=== PATIENT | female | born 1985 | race Caucasian/White ===

== ENCOUNTER 2018-09-21 09:57 | Inpatient (IN) | payer MEDICAID ==
[~2018-09-21 09:57] MED LIST: OXYTOCIN 30 UNITS/LR 500 ML BAG IV
[2018-09-21] MEDS ORDERED: METHYLERGONOVINE 0.2 MG INJ IM ×2 (10:30→18:00)
[2018-09-21] MEDS ORDERED: CARBOPROST 250 MCG INJ IM ×2 (10:30→18:00)
[2018-09-21] MEDS ORDERED: OXYTOCIN 30 UNITS/LR 500 ML IV ×2 (10:30→18:00)
[2018-09-21] MEDS ORDERED: MISOPROSTOL 200 MCG TAB PR ×2 (10:30→18:00)
[2018-09-21 10:42] LABS: ADD MAN DIFF? NO
[2018-09-21 10:51] LABS: BASOPHILS % 0.5 % (0.0-2.0); EOSINOPHILS # 0.1 10^3/ul (0.0-0.5); EOSINOPHILS % 0.8 % (0.0-7.0); HEMATOCRIT 39.4 % (37.0-47.0); HEMOGLOBIN 12.7 g/dl (12.0-16.0); LYMPHOCYTES # 1.9 10^3/ul (0.8-2.9); LYMPHOCYTES % 25.9 % (15.0-51.0); MEAN CORPUSCULAR HEMOGLOBIN 28.3 pg (29.0-33.0); MEAN CORPUSCULAR HGB CONC 32.2 g/dl (32.0-37.0); MEAN CORPUSCULAR VOLUME 87.8 fl (82.0-101.0); MEAN PLATELET VOLUME 11.1 fl (7.4-10.4); MONOCYTE # 0.6 10^3/ul (0.3-0.9); MONOCYTES % 7.3 % (0.0-11.0); NEUTROPHIL # 4.8 10^3/ul (1.6-7.5); NEUTROPHILS % 64.6 % (39.0-77.0); PLATELET COUNT 258 10^3/UL (140-415); RED BLOOD COUNT 4.49 10^6/ul (4.20-5.40); RED CELL DISTRIBUTION WIDTH 15.2 % (11.5-14.5)
[2018-09-21 10:51] LABS: WHITE BLOOD COUNT 7.5 10^3/ul (4.8-10.8)
[2018-09-21 11:01] LABS: GLUCOSE 80 mg/dl (70-220)
[2018-09-21] MEDS: LACTATED RINGER'S 1,000 ML IV ×2 (11:11→12:50)
[2018-09-21 11:33] LABS: HEPATITIS B SURFACE ANTIGEN NEGATIVE (NEGATIVE)
[2018-09-21 11:48] LABS: INR 0.88; PT RATIO 0.9
[2018-09-21 11:49] LABS: PARTIAL THROMBOPLASTIN TIME 27.2 Sec (23.0-35.0)
[2018-09-21] MEDS ORDERED: morphine SULFATE/PF (10 MG/10 ML) INJ (13:19)
[2018-09-21] MEDS ORDERED: ONDANSETRON 4 MG INJ (13:20)
[2018-09-21] MEDS ORDERED: DEXAMETHASONE 4 MG/ML 1 ML INJ (13:20)
[2018-09-21] MEDS ORDERED: FAMOTIDINE 20 MG INJ (13:20)
[2018-09-21] MEDS ORDERED: NALOXONE (0.4 MG/ML) INJ IV (14:00)
[2018-09-21] MEDS ORDERED: DIPHENHYDRAMINE 50 MG INJ IV (14:00)
[2018-09-21] MEDS ORDERED: ZOLPIDEM 5 MG TAB PO (14:00)
[2018-09-21] MEDS ORDERED: KETOROLAC 30 MG INJ IV (14:00)
[2018-09-21] MEDS ORDERED: HYDROmorphONE 0.5 MG/0.5 ML SYG IV ×2 (14:00)
[2018-09-21] MEDS: OXYTOCIN 30 UNITS/LR 500 ML IV ×3 (14:50→22:27)
[2018-09-21] MEDS: CEFAZOLIN 2 GM/50 ML (PMX) 50 ML IVPB (14:51)
[2018-09-21 15:17] LABS: RAPID PLASMA REAGIN NONREACTIVE (NR)
[2018-09-21] MEDS: ONDANSETRON 4 MG INJ IV (15:57)
[2018-09-21] MEDS ORDERED: HYDROCODONE/APAP (5/325) TAB PO ×2 (18:00)
[2018-09-21] MEDS ORDERED: OXYCODONE/ACETAMINOPHEN (5/325) TAB PO ×2 (18:00)
[2018-09-21] MEDS: CEFAZOLIN 1 GM/50 ML (PMX) 50 ML IVPB (18:36)
[2018-09-22] MEDS: LACTATED RINGER'S 1,000 ML IV ×3 (02:16→14:17)
[2018-09-22] MEDS: OXYTOCIN 30 UNITS/LR 500 ML IV ×5 (05:19→14:17)
[2018-09-22 06:36] LABS: ADD MAN DIFF? NO
[2018-09-22 06:39] LABS: WHITE BLOOD COUNT 13.6 10^3/ul (4.8-10.8)
[2018-09-22 06:39] LABS: BASOPHILS % 0.2 % (0.0-2.0); HEMATOCRIT 31.3 % (37.0-47.0); HEMOGLOBIN 10.4 g/dl (12.0-16.0); LYMPHOCYTES # 2.1 10^3/ul (0.8-2.9); LYMPHOCYTES % 15.2 % (15.0-51.0); MEAN CORPUSCULAR HEMOGLOBIN 29.3 pg (29.0-33.0); MEAN CORPUSCULAR HGB CONC 33.2 g/dl (32.0-37.0); MEAN CORPUSCULAR VOLUME 88.2 fl (82.0-101.0); MEAN PLATELET VOLUME 10.8 fl (7.4-10.4); MONOCYTE # 1.1 10^3/ul (0.3-0.9); MONOCYTES % 8.1 % (0.0-11.0); NEUTROPHIL # 10.3 10^3/ul (1.6-7.5); NEUTROPHILS % 76.1 % (39.0-77.0); PLATELET COUNT 214 10^3/UL (140-415); RED BLOOD COUNT 3.55 10^6/ul (4.20-5.40); RED CELL DISTRIBUTION WIDTH 15.1 % (11.5-14.5)
[2018-09-22] MEDS: SENNA/DOCUSATE NA (8.6MG/50MG) TAB PO ×2 (09:58→21:12)
[2018-09-23] MEDS: SENNA/DOCUSATE NA (8.6MG/50MG) TAB PO ×2 (09:17→20:22)
[2018-09-23] MEDS: LANOLIN 7 GM TUBE TOP (09:20)
[2018-09-23] MEDS: IBUPROFEN 600 MG TAB PO ×2 (18:00→23:38)
[2018-09-24] MEDS: IBUPROFEN 600 MG TAB PO ×2 (05:51→12:37)
[2018-09-24] MEDS: SENNA/DOCUSATE NA (8.6MG/50MG) TAB PO (09:17)
[2018-09-24] MEDS: DIPHTH/TET/ACEL PERTUSS (ADULT) 0.5 ML VIAL IM* (15:24)
== END 2018-09-24 15:55 | disposition home or self-care (01) | DRG 788 ==
LOC: L-D 09:57 → PP1 17:34
PROVIDERS: Obstetrics & Gynecology
PROC: 10D00Z1 Extraction of Products of Conception, Low, Open Approach (ICD-10-PCS; principal; 2018-09-21 12:30)
PROC: 3E033VJ Introduction of Other Hormone into Peripheral Vein, Percutaneous Approach (ICD-10-PCS; 2018-09-21 12:30)
DX: O24.429 Gestational diabetes mellitus in childbirth, unspecified control (principal); O34.211 Maternal care for low transverse scar from previous cesarean delivery; Z3A.39 39 weeks gestation of pregnancy; Z37.0 Single live birth
CPT/HCPCS: 82947; 85025; 85610; 85730; 86592; 86850; 86900; 86901; 87340; 90715; 99464